=== PATIENT | male | born 1955 | race Caucasian/White ===

== ENCOUNTER 2021-04-04 09:58 | Outpatient (CLI) | payer SELFPAY ==
--- NOTE | ~2021-04-04 | XR_ITS ---
XR chest 2V 04/04/2021 10:31 Indication: Dyspnea. Heart failure. Procedure: 2 view chest Comparison: No prior studies for comparison. Findings: There is left lower lobe pneumonia. Small left pleural effusion. Heart size upper normal. N o edema or pneumothorax. No acute osseous abnormality. Impression: 1: Left lower lobe pneumonia with small pleural effusion. Reviewed, dictated and finalized at location A. Impression: 1: Left lower lobe pneumonia with small pleural effusion.
--- NOTE | 2021-04-04 10:03 | ECG_ITS ---
Measurements Intervals [place] Rate: 155 P: RI: 0 QRS: 50 QRSD: 96 T: 30 QT: 272 QTc: 437 Interpretive Statements ATRIAL FLUTTER/TACHYCARDIA WITH RAPID VENTRICULAR RESPONSE FREQUENT VENTRICULAR PREMATURE COMPLEXES DELAYED PRECORDIAL R/S TRANSITION BORDERLINE ST-T WAVE ABNORMALITY- INF/LAT LEADS BASELINE ARTIFACT- I, II, III, AVF, V4-V5 ABNORMAL ECG Electronically Signed On 04-04-2021 11:12:49 CDT by Irvin Cardenas D.O.
[2021-04-04 10:12] LABS: Hematocrit 42.7 % (40.0-54.0); Hemoglobin 13.9 g/dL (14.0-18.0); Mean Corpuscular HGB Conc 32.6 g/dL (32.0-36.0); Mean Corpuscular Hemoglobin 30.3 pg (27.0-31.0); Platelet Count Result 383 K/mm3 (150-420); Red Blood Count 4.59 M/mm3 (4.70-6.10); Red Cell Distribution Width 13.5 % (11.6-14.4)
[2021-04-04 11:05] LABS: Alanine Aminotransferase 125 U/L (16-63); Albumin Level 3.7 g/dL (3.4-5.0); Alkaline Phosphatase 21 U/L (46-116); Anion Gap 9 mmol/L (8-16); Aspartate Amino Transferase 53 U/L (15-37); Bilirubin,Total 0.8 mg/dL (0.00-1.00); Blood Urea Nitrogen 11 mg/dL (7-18); Calcium 9.7 mg/dL (8.5-10.1); Carbon Dioxide 29 mmol/L (21-32); Chloride 100 mmol/L (98-108); Cholesterol 140 mg/dL (0-200); Estimated Glomerular Filt Rate > 60; Glucose 129 mg/dL (70-99); HDL Direct 41 mg/dL (40-60); LDL Cholesterol Calculated 89 mg/dL (<130); NT Pro B Type Natriuretic Pept 8544 pg/mL (0-125); Osmolality Calculated 287 mOsm/kg (285-295); Potassium 4.8 mmol/L (3.5-5.1); Sodium 138 mmol/L (136-145); Thyroid Stimulating Hormone Reflex 1.61 u/IU/mL (0.36-3.74); Total Protein 6.7 g/dL (6.4-8.2); Triglycerides 49 mg/dL (0-150)
== END 2021-04-04 09:59 | disposition home or self-care (01) ==
LOC: CHSLAB 10:03
PROVIDERS: PCP Family Medicine; Visit Provider Family Medicine
DX: I50.9 Heart failure, unspecified (principal); E11.9 Type 2 diabetes mellitus without complications
CPT/HCPCS: 36415; 71046; 80053; 80061; 83880; 84443; 85027; 93005

== ENCOUNTER 2021-04-04 10:53 | Observation (INO) | payer SELFPAY ==
[2021-04-04] VITALS (17 sets, daily range): BP systolic 117–153; BP diastolic 86–117; PULSE 118–158; RESP 20–24; TEMP 36.3–37.4; O2SAT 94–99; BMI 28.7
--- NOTE | ~2021-04-04 | CT_ITS ---
EXAMINATION: CTA chest PE protocol DATE: 04/05/2021 06:51 CDT INDICATION: Dyspnea. TECHNIQUE: Computed tomographic angiography (CTA) of the chest was performed with 100 mL Omnipaque-35 0 intravenous contrast. The dose-length product was 608.20 mGy-cm. Maximum intensity projection 3D-re constructions of the aorta and other arteries were constructed by the technologist on a separate work station. Automated exposure control and iterative reconstruction technique were employed. COMPARISON: None. FINDINGS: Study is technically adequate without evidence for pulmonary embolism. Moderate bilateral p leural effusions. There is mediastinal lymphadenopathy, likely reactive. There is underlying compress diego atelectasis. No evidence for aortic aneurysm. Limited evaluation for dissection. 3 mm right upper lobe nodule, image 51 no endobronchial lesions. IMPRESSION: 1. Moderate bilateral pleural effusions with underlying compressive atelectasis. 2: No evidence for pulmonary embolism. 3: Mediastinal lymphadenopathy, likely reactive. 4: Right upper lobe nodule measuring 3 mm, likely benign. Follow-up low dose CT chest in 12 months re commended. Reviewed, dictated and finalized at location A. IMPRESSION: 1. Moderate bilateral pleural effusions with underlying compressive atelectasis . 2: No evidence for pulmonary embolism. 3: Mediastinal lymphadenopathy, likely reactive. 4: Right upper lobe nodule measuring 3 mm, likely benign. Follow-up low dose CT chest in 12 months recommended.
--- NOTE | 2021-04-04 11:02 | ED.SOB ---
HPI - SOB/Dyspnea General Chief Complaint: Shortness of Breath/Dyspnea Stated Complaint: SOB Time Seen by Provider: 04/04/21 11:02 Source: patient Mode of arrival: ambulatory Limitations: no limitations History of Present Illness HPI Narrative: 65-year-old man comes in today from a doctor's office with shortness of breath. For last 3 weeks he has had shortness of breath with exertion that is getting progressively worse. He notes that in the last few days he has had swelling in his ankles. States he has some mild discomfort in the middle of his back but he has had no chest pain. He states he has had a productive cough, fever, chills recently as well. States he quit smoking approximately 6 weeks ago. He states he has for 2 first-degree relatives who before the age of 55 of MIs. MD elicited complaint: shortness of breath and cough Onset (ago): week(s) (3) Context: recent illness Timing: constant and progressively worsening Severity: moderate Exacerbating factors: exertion Relieving factors: rest Associated symptoms: fever, cough, sputum production and chest congestion Treatment prior to arrival: none Related Data Home oxygen amount: none Home Medications Medication Instructions Recorded Confirmed No Home Medications 04/04/21 04/04/21 Allergies Allergy/AdvReac Type Severity Reaction Status Date / Time No Known Allergies Allergy Verified 04/04/21 11:19 Review of Systems Review of Systems: All systems reviewed & are unremarkable except as noted in HPI and below Constitutional: Constitutional: Reports chills, Reports fever(s) and Denies weakness Eyes: Eyes: Denies change in vision and Denies photophobia ENT: Denies nasal congestion and Denies sore throat Cardiovascular: Cardiovascular: Denies chest pain, Reports rapid heart rate and Denies radiating jaw, neck or arm pain Respiratory: Respiratory: Reports chest congestion, Reports cough, Reports dyspnea and Denies wheezing Gastrointestinal: Gastrointestinal: Denies abdominal pain, Denies diarrhea, Denies nausea and Denies vomiting Genitourinary: Genitourinary: Denies hematuria, Denies dysuria and Denies urinary frequency Musculoskeletal: Musculoskeletal: Reports back pain, Denies arthralgias and Denies joint swelling Integumentary/Breasts: Skin/Breast: Denies pruritus, Denies erythema and Denies rash Neurologic: Denies vertigo, Denies dizziness and Denies syncope Endocrine: Endocrine: Reports excessive sweating and Denies polyuria Hematologic/Lymphatic: Hematologic/Lymphatic: Denies easy bleeding and Denies easy bruising Allergic/Immunologic: Allergic/Immunologic: Denies lip swelling and Denies throat swelling PMFSH Past Medical History Medical History No active medical problems Surgical History Surgical History No history of previous surgery Social History Social History Social History: States he has not smoked in 1 month. Smoking status: Current every day smoker Gender identity (if verbalized by the patient): Male Exam Const: General: healthy appearing, no acute distress and alert; No diaphoretic Limitations: no limitations HENMT: Head: normal to inspection Face and sinus: normal facial exam Mouth: Yes moist mucous membranes Throat: posterior oropharynx normal Eyes: Conjunctivae: conjunctivae normal Pupils: Equal, round and reactive pupils present EOM: EOMs intact bilaterally Resp: Effort & Inspection: normal respiratory effort Auscultation: no crackles, rales on the left at the base, no rhonchi, no wheezes and diminished lung sounds on the left in the lower lung jacinto Cardio: Rate: tachycardic Heart sounds: no murmurs GI: GI Palp: Yes Soft to palpation, No Tenderness to palpation present (GI) and No Palpable mass present Skin: General skin exam: no
[2021-04-04 11:39] LABS: INR 1.1; Partial Thromboplastin Time 27.3 SEC (23.90-30.70); Prothrombin Time 11.4 Seconds (9.50-12.10)
[2021-04-04 11:43] LABS: Troponin I 58.4 ng/L (0.00-60.4)
[2021-04-04 11:44] LABS: CRP 0.9 mg/dL (0.0-0.9)
[2021-04-04] MEDS: dilTIAZem HCl INJ 25 MG/5 ML VIAL 15 MG IV PUSH (11:50)
[2021-04-04] MEDS: ASPIRIN 81 MG CHEWABLE TABLET 324 MG PO (11:51)
[2021-04-04 12:31] LABS: Add Urine Microscopic? YES; Appearance Urine Clear (Clear); Bilirubin Urine Negative (Negative); Blood Urine Negative (Negative); Color Urine Light Yellow (Yellow); Glucose Urine UA Negative (Negative); Ketones Urine Negative (Negative); Leukocyte Esterase Ur Negative LEU/UL (Negative); Nitrate Urine Negative (Negative); Protein Urine 1+ (Negative); Urobilinogen Urine 0.2 mg/dL (0.2-1.0); pH Urine 5.5 (5.0-8.0)
[2021-04-04 12:36] LABS: Bacteria Urine 2+ /hpf; Mucus Urine Few /lpf; RBC Urine 0-2 /hpf (0-2); Squamous Epithelial Cell Urine Few /hpf (Few); WBC Urine 0-3 /hpf (0-3)
[2021-04-04 12:37] LABS: Amphetamine Screen Urine Negative (Negative); Barbiturate Screen Urine Negative (Negative); Benzodiazepines Screen Urine Negative (Negative); Cannabinoid Screen Urine Negative (Negative); Cocaine Screen Urine Positive (Negative); Methadone Screen Urine Negative (Negative); Opiate Screen Urine Negative (Negative); Phencyclidine Screen Urine Negative (Negative)
[2021-04-04 12:49] LABS: SARS-CoV-2 Ag Negative (Negative)
[2021-04-04 12:49] LABS: Influenza Control Valid (Valid)
[2021-04-04] MEDS: dilTIAZem HCl INJ 25 MG/5 ML VIAL 10 MG IV PUSH (13:03)
--- NOTE | 2021-04-04 13:11 | PM.IMHP ---
H&P: HPI History of Present Illness Date/Time: 04/04/21 13:11 Michael Carmen is a 65 year old male who comes to the hospital after visiting his PCP. He is being admitted under Observation for LLL Pneumonia, A fib w RVR, Pt states he has been having SOB and inability to complete or perform ADLs for the past 3 weeks. He has felt lethargic stating it took him 4 days to mow his lawn when it usually take a little over an hour. He also noticed swelling in his legs over this past weekend. EKG in ER indicates A fib w/ RVR and Cardizem started. Because of his lethargy Pt stated he felt like he needed a boost and took some cocaine. He states he took a little cocaine on his finger and smeared it on his gums. He states this did work to give him a boost. Pt states he has had some back pain when he coughs and rates the pain at a 3/10. He admits that he has only seen 2 providers on 2 occasions for greater than 10 years. PMHx: Elevated blood BP without Dx of HTN, Lump of skin, Skin abscess, Hx of smoking Chief Complaint: SOB, Swelling of legs Review of Systems Constitutional: Constitutional: Reports no additional constitutional complaints, Denies body ache(s), Reports chills, Reports fatigue and Reports fever(s) Comments: had chills and fevers but not at this time Cardiovascular: Cardiovascular: Denies chest pain, Denies chest pain at rest, Denies chest pain with activity and Reports rapid heart rate Respiratory: Respiratory: Reports cough (this resolved over the last week), Reports dyspnea and Reports dyspnea on exertion Gastrointestinal: Gastrointestinal: Reports no additional gastrointestinal complaints Genitourinary: Genitourinary: Reports no additional male genitourinary complaints Musculoskeletal: Comments: Increased swelling both legs that started this weekend Integumentary/Breasts: Skin/Breast: Reports erythema (to bilateral LE, above ankles to 4 cm up leg) Neurologic: Reports system reviewed and no additional complaints, except as documented, Denies vertigo, Denies dizziness, Denies syncope and Denies headache(s) Psychiatric: Psychiatric: Reports no additional psychiatric complaints Endocrine: Endocrine: Reports no additional endocrine complaints Hematologic/Lymphatic: Hematologic/Lymphatic: Reports no additional hematologic/lymphatic complaints [facility] Past Medical History Medical History Elevated blood pressure reading without diagnosis of hypertension (11/13/17) Lump of skin (11/05/17) Skin abscess (11/05/17) Surgical History Surgical History No history of previous surgery Social History Social History Social History: States he has not smoked in 1 month. Smoking status: Former smoker Tobacco type: cigarettes Alcohol intake: current Drinks per week: 3 Substance use: current Substance use type: marijuana and crack/cocaine Gender identity (if verbalized by the patient): Male Sexual Orientation (if Verbalized by the Patient): Straight or Heterosexual Spiritual care concerns: No Meds Home Medications and Allergies Home Medications Medication Instructions Recorded Confirmed Type No Home Medications 04/04/21 04/04/21 History Allergies Allergy/AdvReac Type Severity Reaction Status Date / Time No Known Allergies Allergy Verified 04/04/21 11:19 Vital Signs Vital Signs - 24 hr 04/04/21 11:13 04/04/21 11:18 04/04/21 11:50 Temperature 98.4 F Pulse Rate 155 H 155 H 155 H Respiratory Rate 20 Blood Pressure 117/105 H 141/117 H Pulse Oximetry 99 Exam Const: General: cooperative, comfortable, no acute distress, well developed, alert, awake, Physically active and tired appearing Nutritional Appearance: average body habitus HENMT: Head: normal to inspection and normocephalic Ears: hearing grossly normal bilaterally
--- NOTE | 2021-04-04 13:50 | ADMGEN ---
This patient, Michael Carmen, was admitted to 2nd Floor Room 226-2. Patient/family oriented to hospital policies and general routines including ID bracelet, bed and alarms, visiting hours, pain management, procedures, bathroom and other care routines, personal items, smoking policy, room service/diet, and visiting hours. Information on how to activate the Rapid Response Team has been discussed. Patient/Family are encouraged to report perceived risks to care and to ask questions if they do not understand what they are told or what they should do.
[2021-04-04 14:16] LABS: Troponin I 60.8 ng/L (0.00-60.4)
[2021-04-04 17:47] LABS: Troponin I 65.1 ng/L (0.00-60.4)
--- NOTE | 2021-04-04 17:51 | PC.NURSE ---
notified of current Troponin level being 65.1/. No new orders at this time.
[2021-04-04] MEDS: FUROSEMIDE INJ 40 MG/4 ML VIAL 20 MG IV PUSH (20:05)
--- NOTE | 2021-04-04 20:47 | PC.NURSE ---
Continues on telemetry showing sinus tach. Denies chest pain. SOB with activity. BLE has nonpitting edema present with slight redness at ankles. alert and oriented x4. son brought in supper for patient.
[2021-04-04] MEDS: APIXABAN 2.5 MG TABLET 5 MG PO (21:35)
[2021-04-04] MEDS: ACETAMINOPHEN 500 MG TABLET 1000 MG PO (23:38)
--- NOTE | 2021-04-04 23:50 | PC.NURSE ---
Dr. Enciso notified of pt's c/o periods of shortness of breath and feeling hot. Staff was advised to continue to monitor pt's condition.
--- NOTE | 2021-04-04 23:51 | PC.NURSE ---
Patient reported he had a hot flash . No pain associ
--- NOTE | 2021-04-04 23:52 | PC.NURSE ---
Patient reports he had hot flash no sweating or chest pain associated with incident. Cardizem continues at 15 ml hour.
--- NOTE | 2021-04-04 23:55 | ECG_ITS ---
Measurements Intervals [place] Rate: 157 P: SC: 0 QRS: 66 QRSD: 89 T: 159 QT: 275 QTc: 444 Interpretive Statements ATRIAL FLUTTER/TACHYCARDIA WITH RAPID VENTRICULAR RESPONSE DELAYED PRECORDIAL R/S TRANSITION NONSPECIFIC ST & T-WAVE ABNORMALITY- INF/LAT LEADS BASELINE ARTIFACT- I, II, III, AVR, AVL, AVF, V1, V3-V6 ABNORMAL ECG Electronically Signed On 04-05-2021 8:16:09 CDT by Irvin Cardenas D.O.
[2021-04-05] VITALS (16 sets, daily range): BP systolic 123–146; BP diastolic 73–113; PULSE 75–154; RESP 18–24; TEMP 35.9–36.6; O2SAT 95–99
--- NOTE | 2021-04-05 00:17 | PC.NURSE ---
Patient taken to radiology for CTA and EKG
--- NOTE | 2021-04-05 00:52 | PC.NURSE ---
Patient returned from radiology. Placed back on telemetry. O2 placed on patient for comfort.
--- NOTE | 2021-04-05 01:43 | PC.NURSE ---
Patient experienced another episode of hot, sweaty feeling without pain. Pulse remains at 154. Doctor notified.
--- NOTE | 2021-04-05 01:46 | PC.NURSE ---
Contacted Dr. Enciso to report pt's heart rate of 154 and blood pressure of 145/108 and c/o feeling hot and sweaty. New orders received and noted.
--- NOTE | 2021-04-05 01:57 | PC.NURSE ---
new order received to increase cardizem to 20.
[2021-04-05] MEDS: MAGNESIUM SULF 2 GM/WATER 50ML 2 GM/50 ML BAG 25 GM (02:50)
--- NOTE | 2021-04-05 02:56 | PC.NURSE ---
Mag started at 0250
[2021-04-05 02:58] LABS: Anion Gap 11 mmol/L (8-16); Blood Urea Nitrogen 16 mg/dL (7-18); Calcium 9.1 mg/dL (8.5-10.1); Carbon Dioxide 26 mmol/L (21-32); Chloride 99 mmol/L (98-108); Estimated CRCL calculation 73 ml/min; Estimated Glomerular Filt Rate > 60; Glucose 122 mg/dL (70-99); NT Pro B Type Natriuretic Pept 6410 pg/mL (0-125); Osmolality Calculated 284 mOsm/kg (285-295); Potassium 4.3 mmol/L (3.5-5.1); Sodium 136 mmol/L (136-145)
[2021-04-05 03:05] LABS: Troponin I 67.3 ng/L (0.00-60.4)
--- NOTE | 2021-04-05 03:07 | PC.NURSE ---
Lab called to report critical troponin of 67.3. Dr. Enciso notified of the results and no new orders were received at this time.
--- NOTE | 2021-04-05 04:18 | PC.NURSE ---
new bag of manolo reyna. Telemetry shows afib. contacted-continue at at 20 ml/hour at this time.
[2021-04-05 06:15] LABS: Hematocrit 43.5 % (40.0-54.0); Hemoglobin 13.7 g/dL (14.0-18.0); Mean Corpuscular HGB Conc 31.5 g/dL (32.0-36.0); Mean Corpuscular Hemoglobin 29.3 pg (27.0-31.0); Mean Corpuscular Volume 92.9 fL (78.0-102.0); Mean Platelet Volume 9.4 fl (8.7-11.0); Platelet Count Result 378 K/mm3 (150-420); Red Blood Count 4.68 M/mm3 (4.70-6.10); Red Cell Distribution Width 13.7 % (11.6-14.4); White Blood Count 8.4 K/mm3 (4.8-10.8)
[2021-04-05 06:45] LABS: Anion Gap 7 mmol/L (8-16); Blood Urea Nitrogen 15 mg/dL (7-18); Calcium 9.2 mg/dL (8.5-10.1); Carbon Dioxide 29 mmol/L (21-32); Chloride 100 mmol/L (98-108); Estimated CRCL calculation 66 ml/min; Estimated Glomerular Filt Rate > 60; Glucose 156 mg/dL (70-99); Magnesium 2.6 mg/dL (1.8-2.4); NT Pro B Type Natriuretic Pept 5370 pg/mL (0-125); Osmolality Calculated 285 mOsm/kg (285-295); Potassium 4.7 mmol/L (3.5-5.1); Sodium 136 mmol/L (136-145)
--- NOTE | 2021-04-05 07:20 | PC.NURSE ---
Cardizem rate dropped to 15 per protocol, heart rate 85, propellant charge zone assembler and Sonnick BLOCK SEALER agreed
[2021-04-05] MEDS: FUROSEMIDE INJ 40 MG/4 ML VIAL 20 MG IV PUSH ×2 (08:25→16:30)
--- NOTE | 2021-04-05 08:25 | PC.NURSE ---
cardizem decreased to 10 per Sonda BATCH RECORDS CLERK, orders given to turn off in 1 hour.
[2021-04-05] MEDS: APIXABAN 2.5 MG TABLET 5 MG PO ×2 (08:26→20:13)
[2021-04-05] MEDS: DOXYCYCLINE HYCLATE 100 MG TABLET PO ×2 (08:26→20:13)
[2021-04-05 09:24] LABS: Prothrombin Time 11.1 Seconds (9.50-12.10)
--- NOTE | 2021-04-05 09:25 | PC.NURSE ---
Donald MEMBERSHIP SALES MANAGER at bedside, cardizem drip discontinued, heart rate 80-90's and AFIB on the monitor, pt denies any other needs at this time
--- NOTE | 2021-04-05 10:10 | PC.NURSE ---
pt sleeping, respirations even and regular, no evidence of distress noted at this time, tele monitor on with alarms
--- NOTE | 2021-04-05 11:30 | PC.NURSE ---
pt sitting up in bed waiting for lunch, pt has put oxygen NC@2L back on for comfort, reports it makes me feel a little better denies any pain or sob, heart rate under 100 and AFIB on monitor
--- NOTE | 2021-04-05 12:20 | PM.IMHP ---
H&P: HPI History of Present Illness Date/Time: 04/05/21 12:20 patient notes that his situation has much improved. He notes that he no longer has shortness of breath in his lower extremities has decreased in size. Patient is concerned because she is the primary caregiver to his who has MS. patient is anxious to discharge home explained to patient that he will not be able to discharge today possibly tomorrow and explained his diagnosis and his new medication that he will need to take. The only complaint the patient has is he did not sleep well overnight. The patient denies SOB, CP, palpitation, extremity numbness, lightheadedness, dizziness, constipation, diarrhea, chills, or fever. Observation Time spent 60 minutes Diagnosis a flutter with RVR <EMMANUEL Rock - Last Filed: 04/05/21 12:31> Chief Complaint: Shortness of breath and lower leg edema <EMMANUEL Rock - Last Filed: 04/05/21 12:31> Review of Systems Review of Systems: Narrative: A 14 organ system Review of Systems was performed and pertinent positives included in the HPI, otherwise remaining ROS is negative. <EMMANUEL Rock - Last Filed: 04/05/21 12:31> [facility] Past Medical History Medical History: Medical History Elevated blood pressure reading without diagnosis of hypertension (11/13/17) Lump of skin (11/05/17) Skin abscess (11/05/17) <EMMANUEL Rock - Last Filed: 04/05/21 12:31> Surgical History Surgical History: Surgical History No history of previous surgery <EMMANUEL Rock - Last Filed: 04/05/21 12:31> Social History Social History: Social History Social History: States he has not smoked in 1 month. Smoking status: Former smoker Tobacco type: cigarettes Alcohol intake: current Drinks per week: 3 Substance use: current Substance use type: marijuana and crack/cocaine Gender identity (if verbalized by the patient): Male Sexual Orientation (if Verbalized by the Patient): Straight or Heterosexual Spiritual care concerns: No <EMMANUEL Rock - Last Filed: 04/05/21 12:31> Meds Home Medications and Allergies Home medications: Home Medications Medication Instructions Recorded Confirmed Type No Home Medications 04/04/21 04/04/21 History <EMMANUEL Rock - Last Filed: 04/05/21 12:31> Allergies/Adverse reactions: Allergies Allergy/AdvReac Type Severity Reaction Status Date / Time No Known Allergies Allergy Verified 04/04/21 11:19 <EMMANUEL Rock - Last Filed: 04/05/21 12:31> Vital Signs Vital Signs - 24 hr 04/04/21 13:00 04/04/21 13:13 04/04/21 13:15 Temperature 97.4 F L Pulse Rate 150 H 156 H 157 H Respiratory Rate 20 20 22 H Blood Pressure 140/117 H 145/102 H 147/117 H Pulse Oximetry 96 95 96 04/04/21 14:00 04/04/21 15:40 04/04/21 16:35 Temperature 99.4 F Pulse Rate 157 H 133 H 118 H Respiratory Rate 20 Blood Pressure 147/117 H 129/97 H 129/97 H Pulse Oximetry 95 04/04/21 20:00 04/04/21 20:29 04/04/21 21:05 Temperature Pulse Rate 118 H 126 H 126 H Respiratory Rate Blood Pressure 133/86 133/86 Pulse Oximetry 04/04/21 21:42 04/04/21 22:25 04/04/21 23:49 Temperature Pulse Rate 132 H 135 H 129 H Respiratory Rate Blood Pressure 130/86 133/86 Pulse Oximetry 04/04/21 23:50 04/05/21 00:52 04/05/21 01:41 Temperature 97.6 F 97 F L Pulse Rate 132 H 145 H 154 H Respiratory Rate 24 H 24 H Blood Pressure 135/113 H 145/108 H Pulse Oximetry 95 95 98 04/05/21 01:50 04/05/21 02:55 04/05/21 04:00 Temperature 97 F L 97 F L Pulse Rate 154 H 88 75 Respiratory Rate 18 20 Blood Pressure 145/108 H 140/92 H 130/113 H Pulse Oximetry 99 95 04/05/21 04:01 04/05/21 05:00 04/05/21
--- NOTE | 2021-04-05 12:22 | ECHO_ITS ---
Patient Info Name: Michael Carmen Age: 65 years : 1955 Gender: Male Ht: 72 in Wt: 211 lbs BSA: 2.22 m2 HR: 92 bpm BP: 136 / 91 mmHg Technical Quality: Good Exam Date: 04/05/2021 2:59 PM Exam Location: [facility] Patient Status: Inpatient Admit Date: 04/04/2021 Staff Ordering Physician: Samson Enciso MD Area Operations Manager: Gissell Cano RDCS Attending Provider: Samson Enciso MD Referring Physician: Fernie MONTERO; Exam Type: CA echo doppler color flow Study Info Indications I49.9 - Cardiac arrhythmia, unspecified R00.0 - Tachycardia, unspecified Complete two-dimensional, color flow and Doppler transthoracic echocardiogram is performed with contrast to opacify the left ventricle and to improve the deliniation of the left ventricle endocardial borders. Strain analysis performed. Contrast/Agitated Saline Contrast/Ag. Saline: Definity Amount: 3.00 ml Existing IV Access: Yes IV Access Condition: patent with no signs of infiltration Site Condition: No extravasation History/Risk Factors Hypertension: No Dyslipidemia: Yes Congenital Heart Disease (CHD): No Peripheral Arterial Disease (PAD): No Myocardial Infarction (PA): No Chronic Lung Disease: No Obesity: No Renal Disease: No Coronary Artery Disease (CAD) No Congestive Heart Failure (CHF): No Cardiomyopathy/LV Systolic Dysfunction: No Diabetes Mellitus: No COPD: No Tobacco Use: Former Cerebrovascular Disease: No Deep Vein Thrombosis (DVT): None Dialysis: None Frailty Scale (CSHA): 1: Very Fit Cardiac Arrest: No Summary 1. Left ventricular chamber dimension is severely enlarged. 2. Definity contrast administered improved wall motion interpretation. 3. Left ventricular systolic function is severely reduced, estimated at <15%. 4. The left ventricular diastolic function is grade II diastolic dysfunction. 5. Left atrial chamber dimension is moderately enlarged. 6. Right atrial chamber dimension is mildly enlarged. 7. There is mild aortic valve sclerosis. 8. There is mild aortic valve regurgitation. 9. There is moderate mitral valve regurgitation. 10. There is moderate tricuspid valve regurgitation. 11. Severe pulmonary hypertension, estimated pulmonary arterial systolic pressure is 63 mmHg. 12. There is mild pulmonic regurgitation. 13. Dilated inferior vena cava with <50% collapse upon inspiration consistent with significantly elevated right atrial pressure, 15 mmHg. Left Ventricle Tissue doppler E/e' is not measured. Definity contrast administered improved wall motion interpretation. Left ventricular chamber dimension is severely enlarged. Left ventricular systolic function is severely reduced, estimated at <15%. The left ventricular diastolic function is grade II diastolic dysfunction. Right Ventricle Right ventricular systolic function is normal based on normal TAPSE 1.9 cm. Right ventricular chamber dimension is not well visualized. Left Atria Left atrial chamber dimension is moderately enlarged. Right Atria Right atrial chamber dimension is mildly enlarged. Aortic Valve The aortic valve is trileaflet. There is mild aortic valve sclerosis. There is no aortic valve stenosis. There is mild aortic valve regurgitation. Pulmonic Valve There is mild pulmonic regurgitation. Mitral Valve There is no mitral valve stenosis. There is modera
--- NOTE | 2021-04-05 12:40 | PC.NURSE ---
pt completed meal, denies any other needs, heart rate continues to be below 100 and AFIB on monitor
--- NOTE | 2021-04-05 14:12 | PC.NURSE ---
pt resting in bed watching tv, heart rate below 100 and AFIB on monitor
--- NOTE | 2021-04-05 15:35 | PC.NURSE ---
radiology in room performing echo
--- NOTE | 2021-04-05 20:25 | PC.NURSE ---
Attempted to call ER doctor to report PT elevated heart rate and B/P. NO answer, will attempt to call back.
--- NOTE | 2021-04-05 21:43 | PC.NURSE ---
Attempted to notify ER doctor of PT elevated HR and B/P, no answer will attempt to call later.
--- NOTE | 2021-04-05 23:06 | PC.NURSE ---
Md notified of patient's increased pulse rate and HTN. New orders received.
--- NOTE | 2021-04-05 23:37 | PC.NURSE ---
Dilitiazem HCL CD 120mg and Metoprolol Tartrate 25mg given PO per orders. Patients HR 125 BP 162/127 automatic cuff; BP 148/110 manual cuff. Will monitor [id number] per MD orders
[2021-04-05] MEDS: METOPROLOL TARTRATE 25 MG TABLET PO (23:57)
[2021-04-06] VITALS: BP 148/110; PULSE 103; PULSE 125; RESP 20; TEMP 36.3; O2SAT 97
--- NOTE | 2021-04-06 01:05 | PC.NURSE ---
Dr. Fuentes called to get an update on pt's blood pressure and pulse rate. Dr. Fuentes was given this information.
[2021-04-06 04:00] VITALS: BP 138/98; PULSE 105; PULSE 106; RESP 22; TEMP 36.2; O2SAT 97
[2021-04-06 05:32] LABS: Hematocrit 42.2 % (40.0-54.0); Hemoglobin 13.8 g/dL (14.0-18.0); Mean Corpuscular HGB Conc 32.7 g/dL (32.0-36.0); Mean Corpuscular Hemoglobin 30.3 pg (27.0-31.0); Mean Corpuscular Volume 92.7 fL (78.0-102.0); Mean Platelet Volume 9.7 fl (8.7-11.0); Platelet Count Result 354 K/mm3 (150-420); Red Blood Count 4.55 M/mm3 (4.70-6.10); Red Cell Distribution Width 13.7 % (11.6-14.4); White Blood Count 8.5 K/mm3 (4.8-10.8)
[2021-04-06 05:41] VITALS: BP 142/98; PULSE 106; RESP 20; TEMP 36.1; O2SAT 97
[2021-04-06 05:47] LABS: Alanine Aminotransferase 84 U/L (16-63); Albumin Level 3.4 g/dL (3.4-5.0); Alkaline Phosphatase 18 U/L (46-116); Anion Gap 9 mmol/L (8-16); Aspartate Amino Transferase 39 U/L (15-37); Bilirubin,Total 0.6 mg/dL (0.00-1.00); Blood Urea Nitrogen 17 mg/dL (7-18); Carbon Dioxide 26 mmol/L (21-32); Chloride 98 mmol/L (98-108); Estimated CRCL calculation 66 ml/min; Estimated Glomerular Filt Rate > 60; Glucose 174 mg/dL (70-99); Osmolality Calculated 281 mOsm/kg (285-295); Potassium 4.7 mmol/L (3.5-5.1); Sodium 133 mmol/L (136-145); Total Protein 6.8 g/dL (6.4-8.2)
[2021-04-06 07:30] VITALS: BP 140/92; PULSE 100; RESP 20; TEMP 36.4; O2SAT 97
[2021-04-06 07:57] LABS: NT Pro B Type Natriuretic Pept 3040 pg/mL (0-125)
[2021-04-06] MEDS: DOXYCYCLINE HYCLATE 100 MG TABLET PO (08:15)
[2021-04-06] MEDS: FUROSEMIDE INJ 40 MG/4 ML VIAL 20 MG IV PUSH (08:15)
[2021-04-06] MEDS: APIXABAN 2.5 MG TABLET 5 MG PO (08:15)
[2021-04-06] MEDS: dilTIAZem HCL CD 180 MG CAP.ER.24H 360 MG PO (08:15)
--- NOTE | 2021-04-06 08:53 | PC.NURSE ---
Donald WIRE PRODUCTS INSPECTOR at bedside
[2021-04-06] MEDS: lisinopriL 5 MG TABLET PO (08:58)
--- NOTE | 2021-04-06 09:23 | PC.NURSE ---
pt up in bathroom cleaning up, heart rate is elevated during this activity
[2021-04-06] MEDS: ALBUTEROL SULFATE (*SP) INHALER 2 PUFF INHALATION (09:58)
[2021-04-06] MEDS: BUDESONIDE/FORMOTEROL (*SP) 160-4.5 MCG 6 GM INH 2 PUFF INHALATION (09:58)
--- NOTE | 2021-04-06 10:20 | PC.NURSE ---
pt sitting up in bed, denies any pain, reports he was winded with the activity of cleaning up.
--- NOTE | 2021-04-06 11:03 | ECG_ITS ---
Measurements Intervals [place] Rate: 116 P: [place]: 0 QRS: 84 QRSD: 97 T: 146 QT: 311 QTc: 432 Interpretive Statements ATRIAL FLUTTER/TACHYCARDIA WITH RAPID VENTRICULAR RESPONSE FREQUENT VENTRICULAR PREMATURE COMPLEXES BORDERLINE R WAVE PROGRESSION, ANTERIOR LEADS NONSPECIFIC ST & T-WAVE ABNORMALITY- INF/HIGH LAT LEADS ABNORMAL ECG Electronically Signed On 04-06-2021 11:47:58 CDT by Irvin Cardenas D.O.
[2021-04-06 11:16] LABS: Troponin I 48.7 ng/L (0.00-60.4)
--- NOTE | 2021-04-06 11:51 | PC.NURSE ---
spoke with patient and family answering questions regarding transfer, notified Donald CEILING INSULATION BLOWER that family would like to speak to her when she has time.
[2021-04-06 12:00] VITALS: BP 143/79; PULSE 112; RESP 20; TEMP 36.5; O2SAT 97
--- NOTE | 2021-04-06 12:21 | P.TS_ITS ---
Transfer Discharge Sum: Prov Provider Date of admission: 04/04/21 12:17 <EMMANUEL Rock - Last Filed: 04/06/21 13:30> Primary care physician: South Garcia DO <EMMANUEL Rock - Last Filed: 04/06/21 13:30> Admitting clinician: Samson Enciso MD <EMMANUEL Rock - Last Filed: 04/06/21 13:30> DS: Admitting Diagnosis Admitting Diagnosis Admitting Diagnosis: Heart failure, a flutter with RVR, pneumonia <EMMANUEL Rock - Last Filed: 04/06/21 13:30> DS: Discharge Diagnosis Discharge Diagnosis (1) Cardiac LV ejection fraction <20%: Code(s): R94.30 - Abnormal result of cardiovascular function study, unspecified <EMMANUEL Rock - Last Filed: 04/06/21 13:30> Status: Acute <EMMANUEL Rock - Last Filed: 04/06/21 13:30> Assessment and Plan: * Echo from 04/05/2021 Left ventricular systolic function is severely reduced, estimated at <15%. The left ventricular diastolic function is grade II diastolic dysfunction. * Patient excepted by cardiology * Continue beta-guicho and KEVIN inhibitor <EMMANUEL Rock - Last Filed: 04/06/21 13:30> (2) Community acquired pneumonia: Code(s): J18.9 - Pneumonia, unspecified organism <EMMANUEL Rock - Last Filed: 04/06/21 13:30> Status: Acute <EMMANUEL Rock - Last Filed: 04/06/21 13:30> Assessment and Plan: * Chest x-ray indicate left lower lobe pneumonia * Started doxycycline and Rocephin * Blood culture pending ,preliminary no growth * WBC within normal limits <EMMANUEL Rock - Last Filed: 04/06/21 13:30> (3) Cocaine abuse: Code(s): F14.10 - Cocaine abuse, uncomplicated <EMMANUEL Rock st Filed: 04/06/21 13:30> Status: Acute <SABRINA RockC - Last Filed: 04/06/21 13:30> Assessment and Plan: * Patient tested positive for cocaine * Patient notes that he has only used it 1 time. He states that when he became short of breath a friend introduced him to it in an attempt to relieve his shortness of breath <Donald Cuevas EMMANUEL - Last Filed: 04/06/21 13:30> (4) History of tobacco abuse: Code(s): Z87.891 - Personal history of nicotine dependence <Donald Cuevas SABRINAC - Last Filed: 04/06/21 13:30> Status: Acute <Donald Cuevas EMMANUEL - Last Filed: 04/06/21 13:30> Assessment and Plan: * History of greater than 20 years of smoking quit 6 weeks ago <Donald Cuevas EMMANUEL - Last Filed: 04/06/21 13:30> (5) CHF (congestive heart failure): Code(s): I50.9 - Heart failure, unspecified <Donald Cuevas SABRINAC - Last Filed: 04/06/21 13:30> Status: Acute <EMMANUEL Rock - Last Filed: 04/06/21 13:30> Assessment and Plan: * [id number] * LV EF <15, diastolic CHF grade 2 * Continue Lasix 20 mg twice daily <Donald Cuevas EMMANUEL - Last Filed: 04/06/21 13:30> (6) Atrial flutter with rapid ventricular response: Code(s): I48.92 - Unspecified atrial flutter <Donald Cuevas MAURY-C - Last Filed: 04/06/21 13:30> Status: Acute <Donald Cuevas EMMANUEL - Last Filed: 04/06/21 13:30> Assessment and Plan: * 04/04 ATRIAL FLUTTER/TACHYCARDIA WITH RAPID VENTRICULAR RESPONSE hr 155 * 04/04 ATRIAL FLUTTER/TACHYCARDIA WITH RAPID VENTRICULAR RESPONSE 157 * 04/06 ATRIAL FLUTTER/TACHYCARDIA WITH RAPID VENTRICULAR RESPONSE 116 * Patient received Cardizem IV push then afterwards IV drip, drip discontinued
--- NOTE | 2021-04-06 12:21 | PM.TDS ---
Transfer Discharge Sum: Prov Provider Date of admission: 04/04/21 12:17 <EMMANUEL Rock - Last Filed: 04/06/21 13:30> Primary care physician: South Garcia DO <EMMANUEL Rock - Last Filed: 04/06/21 13:30> Admitting clinician: Samson Enciso MD <EMMANUEL Rock - Last Filed: 04/06/21 13:30> DS: Admitting Diagnosis Admitting Diagnosis Admitting Diagnosis: Heart failure, a flutter with RVR, pneumonia <EMMANUEL Rock - Last Filed: 04/06/21 13:30> DS: Discharge Diagnosis Discharge Diagnosis (1) Cardiac LV ejection fraction <20%: Code(s): R94.30 - Abnormal result of cardiovascular function study, unspecified <EMMANUEL Rock - Last Filed: 04/06/21 13:30> Status: Acute <EMMANEUL Rock - Last Filed: 04/06/21 13:30> Assessment and Plan: Echo from 04/05/2021 Left ventricular systolic function is severely reduced, estimated at <15%. The left ventricular diastolic function is grade II diastolic dysfunction. Patient excepted by cardiology Continue beta-guicho and KEVIN inhibitor <EMMANUEL Rock - Last Filed: 04/06/21 13:30> (2) Community acquired pneumonia: Code(s): J18.9 - Pneumonia, unspecified organism <EMMANUEL Rock - Last Filed: 04/06/21 13:30> Status: Acute <EMMANUEL Rock - Last Filed: 04/06/21 13:30> Assessment and Plan: Chest x-ray indicate left lower lobe pneumonia Started doxycycline and Rocephin Blood culture pending ,preliminary no growth WBC within normal limits <EMMANUEL Rock - Last Filed: 04/06/21 13:30> (3) Cocaine abuse: Code(s): F14.10 - Cocaine abuse, uncomplicated <EMMANUEL Rock - Last Filed: 04/06/21 13:30> Status: Acute <Donald Cuevas SABRINAC - Last Filed: 04/06/21 13:30> Assessment and Plan: Patient tested positive for cocaine Patient notes that he has only used it 1 time. He states that when he became short of breath a friend introduced him to it in an attempt to relieve his shortness of breath <Donald Cuevas SABRINAC - Last Filed: 04/06/21 13:30> (4) History of tobacco abuse: Code(s): Z87.891 - Personal history of nicotine dependence <Donald Cuevas SABRINAC - Last Filed: 04/06/21 13:30> Status: Acute <Donald Cuevas EMMANUEL - Last Filed: 04/06/21 13:30> Assessment and Plan: History of greater than 20 years of smoking quit 6 weeks ago <Donald Cuevas EMMANUEL - Last Filed: 04/06/21 13:30> (5) CHF (congestive heart failure): Code(s): I50.9 - Heart failure, unspecified <Donald Cuevas SABRINAC - Last Filed: 04/06/21 13:30> Status: Acute <Donald Cuevas EMMANUEL - Last Filed: 04/06/21 13:30> Assessment and Plan: [id number] LV EF <15, diastolic CHF grade 2 Continue Lasix 20 mg twice daily <Donald Cuevas SABRINAC - Last Filed: 04/06/21 13:30> (6) Atrial flutter with rapid ventricular response: Code(s): I48.92 - Unspecified atrial flutter <Donald Cuevas SABRINAC - Last Filed: 04/06/21 13:30> Status: Acute <Donald Cuevas EMMANUEL - Last Filed: 04/06/21 13:30> Assessment and Plan: 04/04 ATRIAL FLUTTER/TACHYCARDIA WITH RAPID VENTRICULAR RESPONSE hr 155 04/04 ATRIAL FLUTTER/TACHYCARDIA WITH RAPID VENTRICULAR RESPONSE 157 04/06 ATRIAL FLUTTER/TACHYCARDIA WITH RAPID VENTRICULAR RESPONSE 116 Patient received Cardizem IV push then afterwards IV drip, drip discontinued after 2nd dose of Cardizem on 120 mg. Thereafter patient with controlled Aflutter heart rates below 100. Patient received Cardizem 360 mg this am transfer. Once echo was reviewed Cardizem discontinued and metoprolol 25 mg started Patient will be transferred to [facility] accepted by Dr. Gamez cardiology Continue Vickey <Donald Cuevas, STRAIGHT TRUCK DRIVER-C - L
--- NOTE | 2021-04-06 12:48 | PC.NURSE ---
Donald SUPERINTENDENT STATIONS in speaking with patient and family
--- NOTE | 2021-04-06 14:31 | PC.NURSE ---
Room assignment obtained from Diego, to go to 211, number for report received
--- NOTE | 2021-04-06 14:47 | PC.NURSE ---
[facility] contacted for transfer
--- NOTE | 2021-04-06 14:50 | PC.NURSE ---
Report called to Aubree REYES at [facility], ambulance called, pt aware of and agreed to discharge plans
--- NOTE | 2021-04-06 15:57 | PC.NURSE ---
[facility] ambulance here to transport patient to [facility]. Report given to ambulance crew and questions answered. Patient alert and oriented, no c/o at time of transfer. Skin warm and dry. Patient denies pain.
== END 2021-04-06 15:45 | disposition short-term general hospital (02) ==
LOC: CHSED 10:55 → CHS2ND 13:04
PROVIDERS: Nurse Practitioner; Admitting Provider Emergency Medicine; Emergency Provider Emergency Medicine; PCP Family Medicine; Visit Provider Emergency Medicine
DX: I50.30 Unspecified diastolic (congestive) heart failure (principal); I48.92 Unspecified atrial flutter; I27.20 Pulmonary hypertension, unspecified; I08.3 Combined rheumatic disorders of mitral, aortic and tricuspid valves; J18.9 Pneumonia, unspecified organism; R91.1 Solitary pulmonary nodule; F14.10 Cocaine abuse, uncomplicated; Z20.822 Contact with and (suspected) exposure to COVID-19; Z87.891 Personal history of nicotine dependence
CPT/HCPCS: 36415; 71275; 80048; 80053; 80307; 81001; 83605; 83735; 83880; 84484; 85027; 85610; 85730; 86140; 87040; 87426; 87804; 93005; 96365; 96366; 96367; 96374; 96375; 96376; 99285; A9270; C8929; C9803; G0378; G0379; J0696; J1940; J3475; Q9967

== ENCOUNTER 2021-04-06 16:20 | Inpatient (IN) | payer SELFPAY ==
[2021-04-06 16:20] VITALS: BP 120/81; PULSE 101; RESP 24; TEMP 36.4; O2SAT 98
--- NOTE | 2021-04-06 16:30 | PM.IMHP ---
H&P: HPI History of Present Illness Date/Time: 04/06/21 16:30 Chief Complaint: Atrial tachycardia/RVR, new diagnosis cardiomyopathy. Narrative: This is a very pleasant 65-year-old male smoker with history of alcohol abuse who is being directly admitted to the IMU from his inpatient bed at the [facility] for further treatment and evaluation as well as consultation with Cardiology after he was found to have severe cardiomyopathy with an EF less than 15%. Over the last 6 weeks or so he is just not felt like himself with intermittent palpitations and the development of dyspnea on exertion. His symptoms have been much worse over the past 3 weeks with the development of orthopnea, lower extremity edema, and cough occasionally productive of clear phlegm. He finally made a doctor's appointment on Sunday and he was directed to the emergency department where he was admitted for atrial tachycardia with rapid ventricular response. Initially he was started on a Cardizem drip however is echocardiogram came back showing an EF of less than 15% so that was discontinued and he was started on metoprolol. He was also started on Eliquis for stroke prophylaxis and lisinopril due to mild blood pressure elevation. It is my understanding that he was also treated for possible pneumonia however no evidence of such on chest CT. At the time my evaluation he is a bit emotional which is understandable given his new diagnosis. He has no personal history of cardiac disease but admits that he avoids going to doctors. His family history is significant for early onset cardiac disease in that his mother at age 52 from an VT and a brother at 45 from an VT. His father of congestive heart failure at age 62. He has diuresed quite well at [place] however he thinks today that his feet are swelling more. Currently he has no complaints and he specifically denies fever, chills, sweats, recent illness, chest pain, pleuritic pain, vomiting, and sweats. Of note the patient admitted to trying cocaine recently at the encouragement of a friend whose thought it would help the patient's shortness of breath. Prior to that he has never used illicit substances aside from marijuana. He has been a heavy drinker, consuming nearly 100 beers a week, but due to feeling bad he has maybe had 2 beers in the last 6 weeks. Review of Systems Review of Systems: Narrative: Twelve systems were reviewed with pertinent positives and negatives as per HPI. No history of covert exposure. He received the [employer] COVID vaccination on 03/19/2021. He was tested for COVID 2 times since that time due to his ongoing shortness of breath and occasional cough, both which were negative. He has been taking what sounds like guaifenesin [id number] for his cough and he thinks that helps a bit. He was also started on inhaler at [facility] which he thinks helps, and believes he may have underlying COPD. No dysuria. No history of venous thromboembolism. No history of sleep apnea. He does on occasion wake himself up snoring. Nobody has ever witnessed him having apneic episodes. No history of alcohol withdrawal or seizures. Except as documented, all other systems were reviewed and are negative. [facility] Past Medical History Medical History (Updated 04/06/21 @ 22:24 by Georgina Kohler PA-C) Cardiomyopathy Combined systolic and diastolic congestive heart failure History of alcohol abuse Hypertension Severe pulmonary hypertension Tobacco dependence Surgical History Surgical History No history of previous surgery Family History Family History (Updated 04/06/21 @ 22:13 by Georgina Kohler PA-C) Father , age 62. Congestive heart failure Mother , at age 52. Acute myocardial infarction Sibling , at age 45. Acute myocardial infarction Social History Social History (Upda
--- NOTE | 2021-04-06 16:36 | ADMGEN ---
This patient, Michael Carmen, was admitted to IMU Room 211-01. Patient/family oriented to hospital policies and general routines including ID bracelet, bed and alarms, visiting hours, pain management, procedures, bathroom and other care routines, personal items, smoking policy, room service/diet, and visiting hours. Information on how to activate the Rapid Response Team has been discussed. Patient/Family are encouraged to report perceived risks to care and to ask questions if they do not understand what they are told or what they should do.
[2021-04-06 16:38] VITALS: BMI 28.6
[2021-04-06 16:40] VITALS: PULSE 90
[2021-04-06 18:00] VITALS: PULSE 109
[2021-04-06 20:00] VITALS: BP 124/90; PULSE 106; PULSE 109; RESP 22; TEMP 36.4; O2SAT 98
[2021-04-06 22:00] VITALS: PULSE 116
[2021-04-06] MEDS: APIXABAN 5 MG TABLET PO (22:50)
[2021-04-06] MEDS: FUROSEMIDE INJ 40 MG/4 ML VIAL IV PUSH (22:50)
[2021-04-07] VITALS (17 sets, daily range): BP systolic 118–139; BP diastolic 78–103; PULSE 84–106; RESP 16–23; TEMP 35.6–36.6; O2SAT 94–99
--- NOTE | 2021-04-07 04:41 | ECG_ITS ---
Measurements Intervals [place] Rate: 92 P: 39 NC: 185 QRS: 44 QRSD: 101 T: 58 QT: 365 QTc: 453 Interpretive Statements SINUS RHYTHM POSSIBLE LEFT ATRIAL ENLARGEMENT BORDERLINE ST-T WAVE ABNORMALITY- DIFFUSE LEADS BASELINE ARTIFACT- I, III, V4-V5 BORDERLINE ECG Electronically Signed On 04-07-2021 7:37:41 CDT by Irvin Cardenas D.O.
[2021-04-07 05:09] LABS: Hematocrit 38.9 % (42.0-52.0); Hemoglobin 12.7 g/dL (14.0-18.0); Mean Corpuscular HGB Conc 32.6 g/dl (32-36); Mean Corpuscular Hemoglobin 29.7 pg (26-34); Mean Corpuscular Volume 90.9 fl (80-100); Mean Platelet Volume 9.2 fl (7.4-10.4); Platelet Count Result 355 k/mm3 (150-375); Red Blood Count 4.28 M/mm3 (4.6-6.20); Red Cell Distribution Width 13.4 % (11.5-14.5); White Blood Count 8.4 K/mm3 (4.5-10.0)
[2021-04-07 05:29] LABS: Alanine Aminotransferase 66 U/L (4-50); Albumin Level 3.8 g/dL (3.5-5.1); Anion Gap 9 mmol/L (8-16); Aspartate Amino Transferase 47 U/L (17-59); Bilirubin,Total 1.1 mg/dL (0.2-1.3); Blood Urea Nitrogen 20 mg/dL (9-20); Calcium 8.9 mg/dL (8.4-10.2); Carbon Dioxide 28 mmol/L (22-30); Chloride 97 mmol/L (98-107); Estimated CRCL calculation 62 ml/min; Estimated Glomerular Filt Rate > 60; Glucose 110 mg/dL (75-110); Potassium 4.2 mmol/L (3.4-5.0); Sodium 134 mmol/L (137-145)
[2021-04-07 06:46] LABS: Alkaline Phosphatase < 20 U/L (38-126)
[2021-04-07] MEDS: guaiFENesin 12 HR 600 MG TABCR PO ×2 (08:36→21:07)
[2021-04-07] MEDS: THIAMINE HCL 100 MG TABLET PO (08:36)
[2021-04-07] MEDS: lisinopriL 5 MG TABLET PO (08:36)
[2021-04-07] MEDS: METOPROLOL SUCCINATE EXT REL 25 MG TABCR PO (08:36)
[2021-04-07] MEDS: FOLIC ACID 1 MG TABLET PO (08:37)
[2021-04-07] MEDS: THERAPEUTIC MULTIVITAMINS/MINERALS TAB (*BKC) 1 TABLET PO (08:37)
--- NOTE | 2021-04-07 09:20 | PM.CNCAR ---
Assessment and Plan Assessment and plan (1) Acute systolic CHF (congestive heart failure): Code(s): I50.21 - Acute systolic (congestive) heart failure Status: Acute Assessment and Plan: Acute systolic and diastolic CHF with EF less than 15% and CHF. Improving with diuresis. Continue metoprolol and IV furosemide. Change lisinopril to Entresto. Add spironolactone. Daily BMP (2) Cardiomyopathy: Code(s): I42.9 - Cardiomyopathy, unspecified Status: Acute Assessment and Plan: EF less than 15%. Etiologies could be: Alcoholic Tachycardia mediated cardiomyopathy Familial cardiomyopathy Related to untreated hypertension CAD (no symptoms of angina however and no VA on EKG) Related to cocaine abuse Probably not myocarditis, amyloid, hemachromatosis, etc. Will check an iron level. Would like to do a cardiac catheterization but the patient has already received several doses of Eliquis, so bleeding risk would be increased. Will do this as an outpatient at a later date off Eliquis. (3) Atrial flutter with rapid ventricular response: Code(s): I48.92 - Unspecified atrial flutter Status: Acute Assessment and Plan: Presented with persistent a flutter RVR of uncertain duration. Has had palpitations off and on for 6 months. Has converted to sinus rhythm but has a high risk of recurrence. Started on Eliquis 04/04/2021 Add amiodarone 400 mg qd as I suspect he has a high risk of recurrence; if his LV function improves we may discontinue it at a later date. (4) Hypertension: Code(s): I10 - Essential (primary) hypertension Status: Acute Assessment and Plan: May have had some degree of hypertension for few years, untreated. Mildly elevated at times here. 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 (7) Cocaine abuse: Code(s): F14.10 - Cocaine abuse, uncomplicated Status: Acute Assessment and Plan: Does not sound like a heavy user of cocaine but I strongly discouraged use of cocaine, meth, etc. which can have severe cardiac consequences. (8) At risk for sudden cardiac : Code(s): Z91.89 - Other specified personal risk factors, not elsewhere classified Status: Acute Assessment and Plan: EF less than 15%; at risk for sudden cardiac . Family history of sudden cardiac . Recommended a LifeVest, but he is currently uninsured and he may not be able to afford one. History of Present Illness History of Present Illness Consult date/time: 04/07/21 09:20 Reason For Visit: humberto mccray/adriana Narrative: Date of service 04/07/2021 Mr. Michael Carmen is a 65-year-old white male whom we were asked to see at the request of UYEN Kohler for our advice and opinion regarding his new cardiomyopathy, in consultation. Mr. Carmen has noted palpitations and irregular heartbeat off and on for several months. He starting having PALUMBO 1 month ago which progressed so he could hardly walk from room to room without any shortness of breath. He started having edema 1 week ago as well as PND and orthopnea. The patient presented Dr. South Covarrubias on 04/04/2021 to establish care and was found to have a flutter RVR and CHF. He subsequently sent to the ER and admitted to [facility]. EF of less than 15%, severe LV enlargement, [id number] adrian
[2021-04-07] MEDS: FUROSEMIDE INJ 40 MG/4 ML VIAL IV PUSH ×2 (10:07→16:54)
--- NOTE | 2021-04-07 14:31 | PM.IMPN ---
Progress Note: A&P Assessment and Plan (1) Combined systolic and diastolic congestive heart failure: Code(s): I50.40 - Unspecified combined systolic (congestive) and diastolic (congestive) heart failure Status: Acute Assessment and Plan: Chest x-ray with evidence of volume overload and BNP elevated at 3000 at presentation. Continue Lasix 40 mg BID Appreciate cardiology consultation Monitor intake and output Continue metoprolol. He has been started on Entresto and spironolactone. (2) Cardiomyopathy: Code(s): I42.9 - Cardiomyopathy, unspecified Status: Acute Assessment and Plan: Echocardiogram showed an EF of less than 15%. He has a strong family history of heart disease though his history of alcohol abuse may very well be a a precipitating factor as well. Appreciate cardiology consultation as above Continue spironolactone, Entresto, and metoprolol as BP tolerates A life vest have been recommended, however there are issues with affordability. Appreciate care coordination assistance. Cardiac catheterization also recommended per Cardiology, however he is currently receiving Eliquis so this will be rescheduled at a later date. (3) Atrial tachycardia: Code(s): I47.1 - Supraventricular tachycardia Status: Acute Assessment and Plan: Presented with atrial flutter with rapid ventricular response. Rate is improved, mostly in the upper 90s and he is now in sinus rhythm. Continue metoprolol and amiodarone Continue Eliquis Monitor on telemetry (4) Hypertension: Code(s): I10 - Essential (primary) hypertension Status: Acute Assessment and Plan: Blood pressures reviewed and have been stable on current regimen. Last BP 134/88. Continue antihypertensives as above Monitor BP daily (5) Suspected chronic obstructive pulmonary disease based on initial evaluation: Code(s): J44.9 - Chronic obstructive pulmonary disease, unspecified Status: Acute Assessment and Plan: He is maintaining adequate oxygen saturations on room air Started on Symbicort at the outside facility which will be continued. Will need outpatient PFTs. (6) Tobacco dependence: Code(s): F17.200 - Nicotine dependence, unspecified, uncomplicated Status: Acute Assessment and Plan: Patient reports that he quit smoking approximately 2 months ago and he was encouraged to continue on with smoking cessation. (7) History of alcohol abuse: Code(s): F10.11 - Alcohol abuse, in remission Status: Acute Assessment and Plan: Patient reports having consumed maybe 2 beers in the last 6 weeks and has not had any signs or symptoms of alcohol withdrawal. He has been started on thiamine, folic acid, and multivitamins. (8) Right upper lobe pulmonary nodule: Code(s): R91.1 - Solitary pulmonary nodule Status: Acute Assessment and Plan: Follow-up chest CT in 12 months to ensure stability. (9) Severe pulmonary hypertension: Code(s): I27.20 - Pulmonary hypertension, unspecified Status: Acute Assessment and Plan: Would benefit from a pulmonary referral as an outpatient. Would also benefit from formal sleep study. Subjective Date/time seen: 04/07/21 14:31 Interval history: Date of service: 04/07/2021 Michael Carmen is a pleasant 65 year old male with a history of systolic and diastolic CHF, alcohol and tobacco abuse, hypertension, and pulmonary hypertension who is seen in follow up for CHF exacerbation. He is feeling better today. He denies SOB or PALUMBO. He reports occasional, non-productive cough. He endorses orthopnea. He denies chest pain or palpitations. He also notes wheezing. He reports swelling in his neck and legs, feels that overall his leg swelling has improved. He denies nausea, vomiting, fever, or chills. He denies dizziness or lightheadedness and has been ambulating wi
[2021-04-07] MEDS: APIXABAN 5 MG TABLET PO (21:07)
[2021-04-08] VITALS (14 sets, daily range): BP systolic 118–148; BP diastolic 83–97; PULSE 91–114; RESP 16–18; TEMP 36.1–36.5; O2SAT 94–98
[2021-04-08 05:26] LABS: Hematocrit 40.3 % (42.0-52.0); Hemoglobin 12.8 g/dL (14.0-18.0); Mean Corpuscular HGB Conc 31.8 g/dl (32-36); Mean Corpuscular Hemoglobin 29.7 pg (26-34); Mean Corpuscular Volume 93.5 fl (80-100); Mean Platelet Volume 9.4 fl (7.4-10.4); Platelet Count Result 321 k/mm3 (150-375); Red Blood Count 4.31 M/mm3 (4.6-6.20); Red Cell Distribution Width 13.5 % (11.5-14.5); White Blood Count 7.3 K/mm3 (4.5-10.0)
[2021-04-08 05:33] LABS: Anion Gap 8 mmol/L (8-16); Blood Urea Nitrogen 23 mg/dL (9-20); Calcium 9.1 mg/dL (8.4-10.2); Carbon Dioxide 28 mmol/L (22-30); Chloride 99 mmol/L (98-107); Estimated CRCL calculation 62 ml/min; Estimated Glomerular Filt Rate > 60; Glucose 105 mg/dL (75-110); Potassium 4.1 mmol/L (3.4-5.0); Sodium 135 mmol/L (137-145)
[2021-04-08 05:43] LABS: Iron 44 ug/dL (49-181)
[2021-04-08] MEDS: AMIODARONE HCL 200 MG TABLET 400 MG PO (08:15)
[2021-04-08] MEDS: THIAMINE HCL 100 MG TABLET PO (08:16)
[2021-04-08] MEDS: guaiFENesin 12 HR 600 MG TABCR PO ×2 (08:16→20:04)
[2021-04-08] MEDS: FOLIC ACID 1 MG TABLET PO (08:16)
[2021-04-08] MEDS: SPIRONOLACTONE 25 MG TABLET PO (08:16)
[2021-04-08] MEDS: METOPROLOL SUCCINATE EXT REL 25 MG TABCR PO (08:16)
[2021-04-08] MEDS: THERAPEUTIC MULTIVITAMINS/MINERALS TAB (*BKC) 1 TABLET PO (08:16)
[2021-04-08] MEDS: FUROSEMIDE INJ 40 MG/4 ML VIAL IV PUSH (08:17)
--- NOTE | 2021-04-08 10:03 | PM.PNCARD ---
Progress Note: A&P Assessment and Plan (1) Acute systolic CHF (congestive heart failure): Code(s): I50.21 - Acute systolic (congestive) heart failure Status: Acute Assessment and Plan: Acute systolic and diastolic CHF with EF less than 15% and CHF. Improving with diuresis. Continue metoprolol. Will transition from IV furosemide to oral today. On Entresto. Plan to be fitted for a life vest today. Daily BMP (2) Cardiomyopathy: Code(s): I42.9 - Cardiomyopathy, unspecified Status: Acute Assessment and Plan: EF less than 15%. Etiologies could be: Alcoholic Tachycardia mediated cardiomyopathy Familial cardiomyopathy Related to untreated hypertension CAD (no symptoms of angina however and no NC on EKG) Related to cocaine abuse Probably not myocarditis, amyloid, hemachromatosis, etc. Would like to do a cardiac catheterization but the patient has already received several doses of Eliquis, so bleeding risk would be increased. Will do this as an outpatient at a later date off Eliquis. (3) Atrial flutter with rapid ventricular response: Code(s): I48.92 - Unspecified atrial flutter Status: Acute Assessment and Plan: Presented with persistent a flutter RVR of uncertain duration. Has had palpitations off and on for 6 months. Has converted to sinus rhythm but has a high risk of recurrence. Started on Eliquis 04/04/2021 Add amiodarone 400 mg qd as I suspect he has a high risk of recurrence; if his LV function improves we may discontinue it at a later date. (4) Hypertension: Code(s): I10 - Essential (primary) hypertension Status: Acute Assessment and Plan: May have had some degree of hypertension for few years, untreated. Mildly elevated at times here. 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 (7) Cocaine abuse: Code(s): F14.10 - Cocaine abuse, uncomplicated Status: Acute Assessment and Plan: Does not sound like a heavy user of cocaine but I strongly discouraged use of cocaine, meth, etc. which can have severe cardiac consequences. (8) At risk for sudden cardiac : Code(s): Z91.89 - Other specified personal risk factors, not elsewhere classified Status: Acute Assessment and Plan: EF less than 15%; at risk for sudden cardiac . Family history of sudden cardiac . Recommended a LifeVest, but he is currently uninsured -will be able to obtain a LifeVest through patient assistance program. He will be fitted for this before his discharge from hospital. Subjective Date/time seen: 04/08/21 10:03 cardiology follow-up for atrial fibrillation, CHF Date of service 04/08/2021: Patient states that he is feeling markedly improved since his admission. He says that he has no shortness of breath, no palpitations. His swelling is dramatically improved. He is very anxious to go home. I talked to him about necessity of LifeVest before his discharge and also ensuring that his fluid balance and symptoms are stable when switched to oral diuretics. He would really like to be home for father's Day. I told him that I thought that this was reasonable goal from a clinical standpoint. Discussed with him that he will need follow-up with us as an outpatient and outpatient left heart catheterization. Review of Systems Constitutional
[2021-04-08] MEDS: APIXABAN 5 MG TABLET PO ×2 (10:26→21:05)
--- NOTE | 2021-04-08 14:36 | PC.NURSE ---
[facility] flyer was given to patient in cardiac admissions folder.
--- NOTE | 2021-04-08 14:41 | PM.IMPN ---
Progress Note: A&P Assessment and Plan (1) Combined systolic and diastolic congestive heart failure: Code(s): I50.40 - Unspecified combined systolic (congestive) and diastolic (congestive) heart failure Status: Acute Assessment and Plan: Chest x-ray with evidence of volume overload and BNP elevated at 3000 at presentation. Appreciate cardiology consultation Transition to p.o. Lasix 80 mg b.i.d. Monitor intake and output Continue metoprolol, Entresto, and spironolactone. (2) Cardiomyopathy: Code(s): I42.9 - Cardiomyopathy, unspecified Status: Acute Assessment and Plan: Echocardiogram showed an EF of less than 15%. He has a strong family history of heart disease though his history of alcohol abuse and cocaine use may very well be a a precipitating factor as well. Appreciate cardiology consultation as above Continue spironolactone, Entresto, and metoprolol as BP tolerates Life vest has been recommended. He had a meeting with a rep and will be fitted prior to discharge. Cardiac catheterization also recommended per Cardiology, however he is currently receiving Eliquis so this will be rescheduled at a later date. (3) Atrial tachycardia: Code(s): I47.1 - Supraventricular tachycardia Status: Acute Assessment and Plan: Presented with atrial flutter with rapid ventricular response. Rate is improved and he is now in sinus rhythm. Continue metoprolol and amiodarone Continue Eliquis, started 04/04 Monitor on telemetry (4) Hypertension: Code(s): I10 - Essential (primary) hypertension Status: Acute Assessment and Plan: Blood pressures reviewed and have been stable on current regimen. Last BP 130/89 Continue antihypertensives as above Monitor BP daily (5) Suspected chronic obstructive pulmonary disease based on initial evaluation: Code(s): J44.9 - Chronic obstructive pulmonary disease, unspecified Status: Acute Assessment and Plan: He is maintaining adequate oxygen saturations on room air Started on Symbicort at the outside facility which will be continued. Will need outpatient PFTs. (6) Tobacco dependence: Code(s): F17.200 - Nicotine dependence, unspecified, uncomplicated Status: Acute Assessment and Plan: Patient reports that he quit smoking approximately 2 months ago and he was encouraged to continue on with smoking cessation. (7) History of alcohol abuse: Code(s): F10.11 - Alcohol abuse, in remission Status: Acute Assessment and Plan: Patient reports having consumed maybe 2 beers in the last 6 weeks and has not had any signs or symptoms of alcohol withdrawal. He has been started on thiamine, folic acid, and multivitamins. (8) Right upper lobe pulmonary nodule: Code(s): R91.1 - Solitary pulmonary nodule Status: Acute Assessment and Plan: Follow-up chest CT in 12 months to ensure stability. (9) Severe pulmonary hypertension: Code(s): I27.20 - Pulmonary hypertension, unspecified Status: Acute Assessment and Plan: Would benefit from a pulmonary referral as an outpatient. Would also benefit from formal sleep study. Subjective Date/time seen: 04/08/21 14:41 Interval history: Date of service: 04/08/2021 Michael Carmen is a pleasant 65 year old male with a history of systolic and diastolic CHF, alcohol and tobacco abuse, hypertension, and pulmonary hypertension who is seen in follow up for CHF exacerbation. He is doing well today. He is eager to return home and wants to be home for Father's Day. His shortness of breath has improved but he continues to endorse PALUMBO. He is still coughing with occasional clear, frothy sputum production. He denies chest pain. No wheezing. Denies palpitations. He is ambulating without difficulty. Denies dizziness or lightheadedness. Feels that his lower extremity edema has i
[2021-04-08] MEDS: FUROSEMIDE 80 MG TABLET PO (17:06)
[2021-04-08] MEDS: SACUBITRIL/VALSARTAN 24-26 MG TABLET 1 TAB PO (20:04)
[2021-04-09] VITALS (9 sets, daily range): BP systolic 142–150; BP diastolic 91–102; PULSE 93–110; RESP 20; TEMP 36.2–36.4; O2SAT 92–98
[2021-04-09 05:25] LABS: Hematocrit 42.8 % (42.0-52.0); Hemoglobin 13.8 g/dL (14.0-18.0)
[2021-04-09 05:44] LABS: Anion Gap 10 mmol/L (8-16); Blood Urea Nitrogen 24 mg/dL (9-20); Calcium 9.5 mg/dL (8.4-10.2); Carbon Dioxide 31 mmol/L (22-30); Chloride 98 mmol/L (98-107); Estimated CRCL calculation 62 ml/min; Estimated Glomerular Filt Rate > 60; Glucose 119 mg/dL (75-110); Potassium 4.3 mmol/L (3.4-5.0); Sodium 139 mmol/L (137-145)
[2021-04-09] MEDS: FUROSEMIDE 80 MG TABLET PO (08:44)
[2021-04-09] MEDS: METOPROLOL SUCCINATE EXT REL 25 MG TABCR PO (08:44)
[2021-04-09] MEDS: SACUBITRIL/VALSARTAN 24-26 MG TABLET 1 TAB PO (08:45)
[2021-04-09] MEDS: THERAPEUTIC MULTIVITAMINS/MINERALS TAB (*BKC) 1 TABLET PO (08:45)
[2021-04-09] MEDS: SPIRONOLACTONE 25 MG TABLET PO (08:45)
[2021-04-09] MEDS: APIXABAN 5 MG TABLET PO (08:45)
[2021-04-09] MEDS: guaiFENesin 12 HR 600 MG TABCR PO (08:45)
[2021-04-09] MEDS: THIAMINE HCL 100 MG TABLET PO (08:45)
[2021-04-09] MEDS: AMIODARONE HCL 200 MG TABLET 400 MG PO (08:45)
[2021-04-09] MEDS: FOLIC ACID 1 MG TABLET PO (08:45)
--- NOTE | 2021-04-09 11:12 | PM.PNCARD ---
Progress Note: A&P Additional Plan 65-year-old man with: New diagnosis of dilated cardiomyopathy and atrial fibrillation. Patient is now in sinus rhythm on amiodarone he is systemically anticoagulated and started on an appropriate heart failure regimen. He is on a very large dose of furosemide which I am going to empirically reduce this time as he is now on affective heart failure regimen, is in sinus rhythm and I doubt require will require this large dose of furosemide for the long-term. Other than this he appears to be some hemodynamically stable doing well and appears to be a appropriate candidate for discharge today. I will see that the office contact him on Sunday for follow-up appointment. Cruz Stokes MD [facility] Subjective Date/time seen: 04/09/21 11:12 Interval history: Date of service: 04/08/2021 Michael Carmen is a pleasant 65 year old male with a history of systolic and diastolic CHF, alcohol and tobacco abuse, hypertension, and pulmonary hypertension who is seen in follow up for CHF exacerbation. He is doing well today. He is eager to return home and wants to be home for Father's Day. His shortness of breath has improved but he continues to endorse PALUMBO. He is still coughing with occasional clear, frothy sputum production. He denies chest pain. No wheezing. Denies palpitations. He is ambulating without difficulty. Denies dizziness or lightheadedness. Feels that his lower extremity edema has improved. Denies abdominal pain, nausea, vomiting, fever, chills. His appetite is good. Date of service 04/09/2021: Patient had his LifeVest fitted this morning he feels well offers no cardiovascular complaints and is hoping to be discharged today. He understands that follow-up with Dr. Gamez in our office is very important. Exam Const: General: comfortable and no acute distress HENMT: Mouth: Yes moist mucous membranes Eyes: Sclera: sclerae normal Pupils: Equal, round and reactive pupils present Neck: Neck: supple and no JVD Resp: Effort & Inspection: normal respiratory effort Auscultation: clear to auscultation bilaterally Cardio: Rate: regular rate Rhythm: regular rhythm Other: PMI enlarged and laterally displaced, S3 audible no murmur GI: GI Palp: Yes Soft to palpation Auscultation: normal bowel sounds Neuro: Cognition (Neuro): normal cognition Extrem: Other: Trivial edema Objective Data Vital Signs Vital Signs: Vital Signs - 24 hr 04/08/21 12:00 04/08/21 14:00 04/08/21 16:00 Temperature 36.2 C L 36.2 C L Pulse Rate 101 H 105 H 102 H Respiratory Rate 16 16 Blood Pressure 118/83 123/96 H Pulse Oximetry 98 04/08/21 17:54 04/08/21 20:00 04/08/21 22:00 Temperature 36.1 C L Pulse Rate 104 H 106 H 103 H Respiratory Rate 16 Blood Pressure 131/97 H Pulse Oximetry 98 04/08/21 23:48 04/09/21 00:00 04/09/21 01:49 Temperature 36.4 C L Pulse Rate 106 H 99 97 Respiratory Rate 16 Blood Pressure 148/92 H Pulse Oximetry 94 04/09/21 04:00 04/09/21 05:49 04/09/21 08:00 Temperature 36.2 C L 36.4 C L Pulse Rate 103 H 94 95 Respiratory Rate 20 20 Blood Pressure 150/91 H 142/102 H Pulse Oximetry 92 98 04/09/21 08:44 04/09/21 08:45 04/09/21 09:45 Temperature Pulse Rate 105 H 110 H 95 Respiratory Rate Blood Pressure Pulse Oximetry Intake/Output Intake/Output: Intake & Output 04/06/21 04/07/21 04/08/21 04/09/21 23:59 23:59 23:59 23:59 Intake Total 240 2390 2010 1080 Output Total 150 600 350 Balance 90 1790 1660 1080 Meds/Results Medications: Active Medications Generic Name Dose Route Start Last Admin Trade Name Jaiq PRN Reason Stop Dose Admin Acetaminophen 650 mg 04/06/21 16:39 Acetaminophen 325 Mg Tablet PO Q4H PRN Mild Pain (1-3) or Fever Amiodarone HCl 400 mg 04/08/21 08:00 04/09/21 08:45 Amiodarone Hcl 200 Mg Tablet PO 400 mg DAILY@0800 SHOAIB Administration Apixaban 5 mg 04/06/21 22:0
--- NOTE | 2021-04-09 12:48 | PM.DS ---
DS: Admitting Diagnosis Admitting Diagnosis Admitting Diagnosis: Cardiomyopathy DS: Discharge Diagnosis Discharge Diagnosis (1) Combined systolic and diastolic congestive heart failure: Code(s): I50.40 - Unspecified combined systolic (congestive) and diastolic (congestive) heart failure Status: Acute Assessment and Plan: Chest x-ray with evidence of volume overload and BNP elevated at 3000 at presentation. He was seen in consultation by cardiology and was diuresed with IV Lasix which was eventually transition to 40 mg PO which he will continue as an outpatient. Also started on metoprolol, Entresto, and spironolactone. CHF Education provided at length. He will follow-up with cardiology as an outpatient. (2) Cardiomyopathy: Code(s): I42.9 - Cardiomyopathy, unspecified Status: Acute Assessment and Plan: Echocardiogram showed an EF of less than 15%. He has a strong family history of heart disease though his history of alcohol abuse and cocaine use may very well be a precipitating factor as well. He was fitted for a Life Vest and will continue to wear this at all times. Cardiac catheterization was recommended per Cardiology, however he is currently receiving Eliquis so this will be rescheduled at a later date; outpatient follow-up. (3) Atrial tachycardia: Code(s): I47.1 - Supraventricular tachycardia Status: Acute Assessment and Plan: Presented with atrial flutter with rapid ventricular response. Rate improved with metoprolol and amiodarone and he converted to sinus rhythm. He was started on Eliquis. Risks versus benefits discussed and he was agreeable to proceed. (4) Hypertension: Code(s): I10 - Essential (primary) hypertension Status: Acute Assessment and Plan: Blood pressures reviewed and were stable on regimen described above. (5) Suspected chronic obstructive pulmonary disease based on initial evaluation: Code(s): J44.9 - Chronic obstructive pulmonary disease, unspecified Status: Acute Assessment and Plan: He was started on Symbicort at outside facility which was continued. He maintain adequate oxygenation on room air. He will benefit from outpatient follow-up for PFTs. (6) Tobacco dependence: Code(s): F17.200 - Nicotine dependence, unspecified, uncomplicated Status: Acute Assessment and Plan: Patient reports that he quit smoking approximately 2 months ago and he was encouraged to continue on with smoking cessation. (7) History of alcohol abuse: Code(s): F10.11 - Alcohol abuse, in remission Status: Acute Assessment and Plan: Patient reports having consumed maybe 2 beers in the last 6 weeks and has not had any signs or symptoms of alcohol withdrawal. He has been started on thiamine and folic acid (8) Right upper lobe pulmonary nodule: Code(s): R91.1 - Solitary pulmonary nodule Status: Acute Assessment and Plan: Follow-up chest CT in 12 months to ensure stability. (9) Severe pulmonary hypertension: Code(s): I27.20 - Pulmonary hypertension, unspecified Status: Acute Assessment and Plan: Would benefit from a pulmonary referral as an outpatient. Would also benefit from formal sleep study. DS: Summary Hospital Course Reason for hospitalization: Cardiomyopathy Hospital Course: Date of admission: 04/06/2021 Date of discharge: 04/09/2021 Michael Carmen is a pleasant 65 year old male with a history of systolic and diastolic CHF, alcohol and tobacco abuse, hypertension, and pulmonary hypertension who was directly admitted to [facility] from [facility] for cardiology consultation after being found to have severe cardiomyopathy at 15%. Upon presentation to the facility, his HR was 101, RR 24, additional vital signs stable, WBC 8.5, hemoglobin 13.8, hematocrit 42.2, platelets 354. PT 11.1, INR 1.0. [place]
== END 2021-04-09 13:10 | disposition home or self-care (01) | DRG 194 ==
PROVIDERS: Internal Medicine Cardiovascular Disease; Physician Assistant; Admitting Provider Family Medicine; PCP Family Medicine; Visit Provider Family Medicine
DX: I11.0 Hypertensive heart disease with heart failure (principal); I50.43 Acute on chronic combined systolic (congestive) and diastolic (congestive) heart failure; I42.0 Dilated cardiomyopathy; I27.20 Pulmonary hypertension, unspecified; J44.9 Chronic obstructive pulmonary disease, unspecified; I47.1 Supraventricular tachycardia; I48.92 Unspecified atrial flutter; R91.1 Solitary pulmonary nodule; F10.11 Alcohol abuse, in remission; F14.10 Cocaine abuse, uncomplicated; Z79.01 Long term (current) use of anticoagulants; Z79.899 Other long term (current) drug therapy; Z82.41 Family history of sudden cardiac death; Z87.891 Personal history of nicotine dependence; Z91.89 Other specified personal risk factors, not elsewhere classified
CPT/HCPCS: 36415; 80048; 80053; 83540; 83735; 84100; 85014; 85018; 85027; 93005; 96374; A9270; G0378; G0379; J1940